=== PATIENT | male | born 1955 | race Caucasian/White ===

== ENCOUNTER → 2018-03-04 | Outpatient (CLI) | payer BC ==
[~2018-03-04] VITALS: Ht 185.4 cm; Wt 89.8 kg
[~2018-03-04] MED LIST: CLARITIN10 MG PO; ETODOLAC 400 M400 MG PO; FLEXERIL PO; FLONASE 0.05%50 MCG NASAL; LIPITOR10 MG PO; LISINOPRIL10 MG PO; MIRAPEX0.5 MG PO; MOBIC15 MG PO; NEURONTIN 300300 M1 PO; NORCO 5-325 TA1 EACH PO; OMEPRAZOLE 20 M20 M1 PO; SULFAMETHOXAZOLE PO; TRAMADOL 50 MG50 MG PO
--- NOTE | ~2018-03-04 | HPC ---
[facility] [address] [place] [address] PAIN MANAGEMENT CONSULTATION Name: MATHIEU COPELAND Room #: REG OMER De AndaErickCindyErick#: [id number] Admission: 03/04/18 Attend Phys: Orville Reyes MD Discharge: Date of : 53 Report #: [id number] THIS REPORT FOR: //name// CC: Orville Oropeza MD DATE OF SERVICE: 03/04/2018 PRIMARY CARE PHYSICIAN: Otf Oropeza M.D. CHIEF COMPLAINT: Back pain with pain radiating down into the left leg. FOLLOWUP HISTORY: The patient is a 62-year-old gentleman who has been seen by his primary physician. The patient has pain and discomfort, which has been quite problematic. States that he awoke and noticed some back spasms. After that, he has noticed pain and discomfort, which has been quite problematic involving his left leg. Notes some weakness in the left leg. Pain is in the anterior portion of his thigh. He feels like he had pain similar to this in the past. He did have an MRI in 2013, which showed a large extruded disk fragment. It measured 2.3 cm x 1.2 cm. Feels that this pain is somewhat similar to that, which he had experienced then. Notes that after standing, the pain could be quite excruciating in the first 60 seconds. Denies any bowel or bladder dysfunction. Notes sometimes that standing can decrease the pain and sitting can be more problematic. It involves his left leg. He has tried nonsteroidal anti-inflammatory medications. Feels that there has been a slight improvement with their use. Sometimes notes that if he is on his back and elevates his left knee while lying down, notes some improvement in pain. Lying flat is somewhat beneficial. Pain is worse if he sits for too long. Rates his pain as 5/10 at this juncture. The patient has been unable to follow up and go to work because of this. ALLERGIES: PENICILLIN. MEDICATIONS: Meloxicam 15 mg 1 p.o. daily, Flonase 0.05% nasal spray, Flexeril 10 mg t.i.d., Lipitor 10 mg, lisinopril 10 mg, Mirapex ____ mg. PAST MEDICAL HISTORY: Epilepsy/seizures, hypertension, joint disease/arthritis, benign prostatic hypertrophy, bicuspid aortic valve, GERD, obstructive sleep apnea, hypercholesterolemia. PAST SURGICAL HISTORY: 1. Fused fifth/sixth vertebrae in his neck in 1986. 2. Deviated septum in 1991. 3. Tonsillectomy. [address] [address] PAIN MANAGEMENT CONSULTATION Name: MATHIEU COPELAND Room #: REG [facility]#: [id number] Admission: 03/04/18 Attend Phys: Orville Reyes MD Discharge: Date of : 53 Report #: [id number] SOCIAL HISTORY: He is an senior benefits analyst. He is working. He has been off from work 5 days because of this pain. LABORATORY DATA: MRI of the lumbar spine dated 10/26/2013. There is a mass effect behind the left inferior aspect of the L1 vertebral body. The difference was a large extruded disk fragment extending upward from L1/L2. PAIN CLINIC ASSESSMENT AND PQRS: 1. The patient has some arthritic changes and has had neck surgery. 2. Rheumatoid arthritis. The patient is not being treated for rheumatoid arthritis. 3. Height 6 feet 1 inch, weight 195 pounds, BMI is 26.1. 4. Vital Signs: Blood pressure 141/85, pulse 88, respiratory rate 14, room air saturation 95%. 5. Pain intensity 4-5/10. 6. Fall risk. The patient has not fallen in the last 3 months. 7. Blood thinner. The patient is not on a blood thinning medication. 8. Hypertension. The patient is being treated for hypertension. 9. Opiates greater than 6 weeks. The patient is not on an opioid regimen. 10. Risk assessment tool, low for opioid use. 11. Functional assessment tool, 43/70. 12. Recreational drug use. The patient denies use of recreational drugs. 13. Tobacco: The patient has never smoked. 14. Alcohol: The patient drinks alcoholic beverages on occasion. PHYSICAL EXAMINATION: GENERAL: The patient is a well-developed, well-nourished, white male. Appears his stated age. He is alert and oriented x 3. Affect is appropriate. Speech is fluent. HEENT: Normocephalic, atraumatic. Extraocular eye muscles intact. Sclerae nonicteric. Mucous membranes are moist. NECK: Without adenopathy or JVD. Good range of motion. The patient's neck without bruits. MUSCULOSKELETAL: Upper extremity muscle strength is judged to be 5/5 for the major muscle groups in the upper extremity. Deep tendon reflexes are trace at the biceps bilaterally, unelicited at the triceps and brachioradialis. The patient without significant scoliosis, kyphosis or lordosis. The patient has pain in the lower portion of his back with pain radiating down the left side into the area of the L3-L4 dermatomal distribution at this juncture. Notes numbness in that area, tingling, weakness and sensory changes. Lower extremity muscle strength is judged to be 5/5 for the major muscle groups in the lower extremity. Deep tendon reflexes are +1 at the knees bilaterally. Absent at the ankles. The patient is able to stand on his toes to stand on his heels. Left and right lateral bending were performed. Left lateral bending caused some increased discomfort in the left anterior portion of his leg. Right lateral bending was not problematic. Forward bending to 45 degrees. Lumbar extension [facility] [address] [place] [address] PAIN MANAGEMENT CONSULTATION Name: MATHIEU COPELAND Room #: REG OMER Rinaldi#: [id number] Admission: 03/04/18 Attend Phys: Orville Reyes MD Discharge: Date of : 53 Report #: [id number] were not very problematic. Bryan sign was negative. The patient noticed worsening of pain and discomfort with dependent positioning of his left thigh from the side of bed. IMPRESSION: 1. Lumbar radiculopathy, L3-L4 dermatomal distribution similar to that which he experienced 4 years ago and which improved after an epidural steroid injection. 2. Epilepsy/seizures. 3. Hypertension. 4. Joint disease/arthritis. 5. Benign prostatic hypertrophy. 6. Bicuspid aortic valve. 7. Gastroesophageal reflux disease. 8. Obstructive sleep apnea. 9. Hypercholesterolemia. RECOMMENDATIONS: We discussed treatment options with the patient. A model was used to indicate the area of probable pathology. Again, we reviewed his old MRI with him. He feels that this medication is similar to what he had experienced in the past, but a little bit lower than it had been prior to that. He has been doing stretching exercises to help try and decrease the pain. He has used nonsteroidal anti-inflammatory medications. Has been monitoring his GI intake of nonsteroidals secondary to GERD. Notes some discomfort in the right leg as well, but the pain is primarily as well in the left anterior thigh and the L3-L4 distribution. Movement with the patient letting his left leg hang from the dependent from the bed cause a worsening of pain that radiates down into his left thigh. The patient sits and rubs his left thigh. We discussed treatment options with the patient. Risks and benefits of an epidural steroid injection were discussed. Possible complications of the procedure, which could include but are not limited to infection, worsening of pain, no improvement in pain, headache, paralysis were discussed and the patient would like to proceed. We will contact the patient's insurance carrier. We will petition for the patient to undergo an epidural steroid injection. He is unable to go to work over the last 5 days secondary to this pain. Hopefully, his insurance carrier would let him proceed, but he could improve and be able to return to work and to a more normal level of activity. By: [id number] Orville Reyes MD /[place]
[2018-03-04 10:55] VITALS: BP 141/85
== END ==
LOC: PAIN 10:08
DX: M54.16 Radiculopathy, lumbar region (principal); G40.802 Other epilepsy, not intractable, without status epilepticus; I10 Essential (primary) hypertension; M19.90 Unspecified osteoarthritis, unspecified site; K21.9 Gastro-esophageal reflux disease without esophagitis; G47.33 Obstructive sleep apnea (adult) (pediatric); E78.00 Pure hypercholesterolemia, unspecified; Z98.890 Other specified postprocedural states; Z88.0 Allergy status to penicillin; Z79.01 Long term (current) use of anticoagulants